=== PATIENT | male | born 1950 | race Caucasian/White ===

== ENCOUNTER 2018-01-15 11:01 | Emergency (ER) | payer OTHER ==
[2018-01-15 11:07] VITALS: BP 144/88; BMI 28.6
[2018-01-15 12:19] LABS: BASOPHILS # (AUTO) 0.1 X10^3/uL (0.0-0.1); BASOPHILS % (AUTO) 1.8 % (0.2-1.0); EOSINOPHILS # (AUTO) 0.2 x10^3/uL (0.0-0.2); EOSINOPHILS % (AUTO) 2.9 % (0.9-2.9); HEMATOCRIT 40.8 % (42.0-54.0); HEMOGLOBIN 14.1 g/dL (13.5-18.0); LYMPHOCYTES # (AUTO) 2.7 X10^3/uL (1.3-2.9); LYMPHOCYTES % (AUTO) 49.8 % (21.0-51.0); MEAN CORPUSCULAR HEMOGLOBIN 33.4 pg (27.0-34.0); MEAN CORPUSCULAR HGB CONC 34.5 g/dL (33.0-35.0); MEAN CORPUSCULAR VOLUME 96.8 fL (80.0-100.0); MEAN PLATELET VOLUME 8.7 fL (7.4-11.0); MONOCYTES # (AUTO) 0.5 x10^3/uL (0.3-0.8); MONOCYTES % (AUTO) 9.6 % (0.0-13.0); NEUTROPHILS % (AUTO) 35.9 % (42.0-75.0); PLATELET COUNT 138 X10^3/uL (150.0-450.0); RED BLOOD COUNT 4.22 X10^6/uL (4.7-6.0); RED CELL DISTRIBUTION WIDTH 13.6 % (11.6-16.5); WHITE BLOOD COUNT 5.5 X10^3/uL (3.6-10.0)
--- NOTE | 2018-01-15 12:23 | DR.GIBLEED ---
HPI - Time Seen Time seen: 12:20 - Primary Care Physician Primary Care Physician: DR. ATKINS - HPI Comment HPI Comment: HISTORY BELOW. - Complaints Chief Complaint Doctors Comments: COLONOSCOPY DONE ONE WEEK AGO. NO ABDOMINAL PAIN. HISTORY HEMORRHOID IN THE PAST. TOLD NO HEMORRHOID FOUNG DURING RECENT COLONOSCOPY. Chief Complaint:: PT C/O BLOOD IN STOOL THIS AM, BRIGHT RED. Self Treatment fo Chief Complaint: PT C/O SEEING BRIGHT RED BLOOD IN HIS STOOL AND WHEN HE WIPED [facility] AND PT DENIES ANY PAIN.. - Reviewed Nurses Notes Reviewed: Yes - Source History Provided: Patient - Mode of Arrival Mode of Arrival: Ambulatory - Timing Onset of Chief Complaint: 01/15/18 - Quality Vomitus: Bright Red Blood Stools: IN TOILET PMH - PMH Past Medical History: Yes Past Medical History: Diabetes Past Medical History Comment: ENLARGED PROSTATE. Past Surgical History: No - Family History History of Family Medical Conditions: No - Social History Does patient currently use any type of tobacco product: No Have you used tobacco products in the last 12 months: No Type of Tobacco Use: None Does any household member use tobacco: No Alcohol Use: None Do you use any recreational Drugs:: No Lives With: Family Lives Where: Home - infectious screening In the last 2 months have you had wt loss of >10#?: NO Have you had fever, night sweats or hemotysis?: No Have you traveled outside the country in the last 6 months?: No Isolation: Standard ROS - Review of Systems Constitutional: No Symptoms Reported Eyes: No Symptoms Reported ENTM: No Symptoms Reported Respiratoy: No Symptoms Reported Cardiovascular: No Symptoms Reported Gastrointestinal/Abdominal: Other (GI BLEEDING) Genitourinary: Bleeding Neurological: No Symptoms Reported Musculoskeletal: No Symptoms Reported Integumentary: No Symptoms Reported Hematologic/Lymphatic: No Symptoms Reported Endocrine: No Symptoms Reported All Other Systems: Reviewed and Negative PE - Vital Signs Vitals: Temperature 97.7 F Pulse Rate 73 Respiratory Rate 20 Blood Pressure 144/88 O2 Sat by Pulse Oximetry 100 - General Limitations: No Limitations General Appearance: Alert - Head Head Exam: Normal Inspection - Eyes Eye exam: Normal Appearance - ENT ENT Exam: Normal External Ear Exam - Neck Neck Exam: Trachea Midline - Chest Chest Inspection: Symmetric Chest Wall Rise - Respiratory Respiratory Exam: Normal Lung Sounds Bilat Respiratory Exam: Bilateral Clear to Auscultation - Cardiovascular Cardiovascular Exam: Regular Rate, Normal Rhythm, Normal Heart Sounds - Abdominal Exam Abdominal Exam: Normal Bowel Sounds, Soft. negative: Tenderness - Rectal Rectal Exam: Heme (+) Stool. negative: Hemorrhoids - Extremities Extremities Exam: Normal Inspection - Back Back Exam: Normal Inspection - Neurologic Neurological Exam: Alert, Oriented X3 - Psychiatric Psychiatric Exam: Normal Affect, Normal Mood - Skin Skin Exam: Normal Color Differential Diagnosis - Additional Information Obtained Additional Information Obtained From: Family - Differential Diagnosis Differential Diagnosis: Bleeding diathesis, Diverticulosis, Gastritis, Gastroenteritis, Inflammatory BD, PUD, Stress Ulcers Course - Treatment Treatment: SEE ORDERS. - Education/Counseling Education/Counseling: Patient, Family, Education Educated On: Diagnosis, Needs for Follow Up ROR - Labs Reviewed Laboratory Results Reviewed?: Yes Result Diagrams: 01/15/18 12:11 01/15/18 12:11 Laboratory: WBC 5.5 X10^3/uL (3.6-10.0) 01/15/18 12:11 RBC 4.22 X10^6/uL (4.7-6.0) L 01/15/18 12:11 Hgb 14.1 g/dL (13.5-18.0) 01/15/18 12:11 Hct 40.8 % (42.0-54.0) L 01/15/18 12:11 MCV 96.8 fL (80.0-100.0) 01/15/18 12:11 MCH 33.4 pg (27.0-34.0) 01/15/18 12:11 MCHC 34.5 g/dL (33.0-35.0) 01/15/18 12:11 RDW 13.6 % (11.6-16.5) 01/15/18 12:11 Plt Count 138 X10^3/uL (150.0-450.0) L 01/15/18 12:11 MPV 8.7 fL (7.4-11.0) 01/15/18 12:11 Neut % (Auto) 35.9 % (42.0-75.0) L 01/15/18 12:11 Lymph % (Auto) 49.8 % (21.0-51.0) 01/15/18 12:11 Henry % (Auto) 9.6 % (0.0-13.0) 01/15/18 12:11 Eos % (Auto) 2.9 % (0.9-2.9) 01/15/18 12:11 Baso % (Auto) 1.8 % (0.2-1.0) H 01/15/18 12:11 Neut # (Auto) 2.0 x10^3/uL (2.2-4.8) L 01/15/18 12:11 Lymph # (Auto) 2.7 X10^3/uL (1.3-2.9) 01/15/18 12:11 Henry # (Auto) 0.5 x10^3/uL (0.3-0.8) 01/15/18 12:11 Eos # (Auto) 0.2 x10^3/uL (0.0-0.2) 01/15/18 12:11 Baso # (Auto) 0.1 X10^3/uL (0.0-0.1) 01/15/18 12:11 Absolute Nucleated RBC 0.1 /100WBC 01/15/18 12:11 INR Target Range - 01/15/18 11:55 INR 0.96 (0.8-1.3) 01/15/18 11:55 APTT 30.0 SECONDS (22.9-36.5) 01/15/18 11:55 PTT Comment - 01/15/18 11:55 Sodium 141 mmol/L (136-145) 01/15/18 12:11 Corrected Sodium TNP 01/15/18 12:11 Potassium 3.5 mmol/L (3.5-5.1) 01/15/18 12:11 Chloride 104 mmol/L (98-107) 01/15/18 12:11 Carbon Dioxide 28.7 mmol/L (21-32) 01/15/18 12:11 BUN 10 mg/dL (7-18) 01/15/18 12:11 Creatinine 1.05 mg/dL (0.70-1.30) 01/15/18 12:11 Est GFR (MDRD) Af Amer > 60 (>60) 01/15/18 12:11 Est GFR (MDRD) Non-Af > 60 (>60) 01/15/18 12:11 Glucose 65 mg/dL (65-99) 01/15/18 12:11 Calcium 8.6 mg/dL (8.5-10.1) 01/15/18 12:11 Corrected Calcium TNP 01/15/18 12:11 Total Bilirubin 0.30 mg/dL (0.2-1.0) 01/15/18 12:11 AST 14 Units/L (15-37) L 01/15/18 12:11 ALT 22 Units/L (12-78) 01/15/18 12:11 Alkaline Phosphatase 121 Units/L (46-116) H 01/15/18 12:11 Total Protein 7.5 g/dL (6.4-8.2) 01/15/18 12:11 Albumin 3.8 g/dL (3.4-5.0) 01/15/18 12:11 Globulin 3.7 g/dL (2.5-4.5) 01/15/18 12:11 Albumin/Globulin Ratio 1.0 Ratio (1.1-2.1) L 01/15/18 12:11 Stool Description Fob tube 01/15/18 12:05 Stl Occult Blood (IFOB) Positive (NEGATIVE) A 01/15/18 12:05 - XRAY XRAY Interpreted by: Radiologist - Diagnosis Discharge Problem: GI (gastrointestinal bleed) Qualifiers: GI bleed type/associated pathology: unspecified gastrointestinal hemorrhage type Qualified Code(s): K92.2 - Gastrointestinal hemorrhage, unspecified - Discharge Plan Disposition: HOME, SELF-CARE Condition: Stable Prescriptions: Hydrocortisone Supp 25 mg [Anucort-Hc Supp] 25 mg MI BID #24 sup Ranitidine HCl [ZANTAC TAB 150 MG *] 150 mg PO BID #60 tab - Follow ups/Referrals Follow ups/Referrals: DEONDRE ZAPATA [STAFF PHYSICIAN] - 1 day LA ATKINS [Primary Care Provider] - 1 day - Instructions Instructions: Gastrointestinal Bleeding, [id number]
[2018-01-15 12:32] LABS: ALANINE AMINOTRANSFERASE 22 Units/L (12-78); ALBUMIN 3.8 g/dL (3.4-5.0); ALKALINE PHOSPHATASE 121 Units/L (46-116); ASPARTATE AMINO TRANSFERASE 14 Units/L (15-37); BLOOD UREA NITROGEN 10 mg/dL (7-18); CALCIUM 8.6 mg/dL (8.5-10.1); CARBON DIOXIDE 28.7 mmol/L (21-32); CHLORIDE 104 mmol/L (98-107); CREATININE 1.05 mg/dL (0.70-1.30); SODIUM 141 mmol/L (136-145); TOTAL PROTEIN 7.5 g/dL (6.4-8.2); eGFR BLACK RACES > 60 (>60); eGFR NON BLACK RACES > 60 (>60)
== END 2018-01-15 13:45 | disposition home or self-care (01) ==
LOC: ER 11:14
DX: K92.2 Gastrointestinal hemorrhage, unspecified (principal)
CPT/HCPCS: 36415; 80053; 82274; 85025; 85610; 85730; 99282